=== PATIENT | male | born 1935 | race Caucasian/White ===

== ENCOUNTER 2017-01-22 15:57 | Inpatient (IN) | payer MEDICARE, MEDICAID ==
[2017-01-22 16:30] LABS: Oxyhemoglobin 97.9 % (94.0-97.0); Sodium 147 mmol/L (135-148)
[2017-01-22 16:34] LABS: Mechanical Tidal Volume 500 ml; Modified Allen's Test POSITIVE; Vent YES
[2017-01-22] MEDS ORDERED: Propofol 1,000 MG/100 ML VIAL IV ONE (16:34)
[2017-01-22 16:35] LABS: Mode TRANSPORT VENT
[2017-01-22] MEDS ORDERED: Sodium Bicarb 50 MEQ/50 ML Abboject 8.4% SYRINGE ONE (16:42)
[2017-01-22 16:46] LABS: Hematocrit 44.2 % (42.0-52.0); Mean Platelet Volume 7.3 fL (7.4-10.4); Red Blood Cell (RBC) Count 4.34 mill/uL (4.70-6.10); White Blood Cell (WBC) Count 24.7 thou/uL (4.8-10.8)
[2017-01-22 17:05] LABS: Band 3 % (5-11); Neutrophil 75 % (42-75)
--- NOTE | 2017-01-22 17:05 | RAD ---
TWO AP VIEWS OF THE CHEST 01/22/17 INDICATION: Intubation. COMPARISON: Prior exam dated 01/22/17 at 11:24 a.m. FINDINGS: ET tube tip is again seen around the region of the thoracic inlet. There is a gastric catheter placed and projects beyond the left hemidiaphragm beyond the field of view. Cardiomegaly with pulmonary vas culature congestion remains. There is a small to moderate right sided pneumothorax now demonstrated. Pacer pads overlie the right chest wall. IMPRESSION: 1. New small to moderate right sided pneumothorax. 2. ET tube tip is not appreciably changed from the comparison, projecting the region of the thor acic inlet. There is a gastric catheter projecting beyond the left hemidiaphragm below the field of v iew. Persistent cardiomegaly with pulmonary vascular congestion. 3. Findings were called to Dr. Case at 4:50 p.m. on 01/22/17. Code CR POS: [facility]
[2017-01-22 17:10] LABS: Troponin I 0.799 ng/mL (< 0.028)
[2017-01-22] MEDS ORDERED: Lidocaine 1% w/Epinephrine 1:200K 30 ML VIAL ONE (17:46)
[2017-01-22] MEDS ORDERED: Lacri-Lube Opth Oint 3.5 GM TUBE EA EYE PRN (18:55)
[2017-01-22] MEDS ORDERED: Acetaminophen 650 MG Suppository PR PRN (18:55)
[2017-01-22] MEDS ORDERED: CCU Electrolyte Replacement 1 EACH IVPB SCH (18:55)
[2017-01-22] MEDS ORDERED: Phenylephrine 10 MG/NS 250 ML 250 ML IVPB PRN (18:55)
[2017-01-22] MEDS ORDERED: Ondansetron HCl/PF 4 MG/2 ML Vial IVP PRN (18:55)
[2017-01-22] MEDS ORDERED: VANCOMYCIN IVPB PRN ×2 (19:10→19:25)
[2017-01-22] MEDS ORDERED: Magnesium Oxide 400 MG TAB PO PRN ×2 (19:11)
[2017-01-22] MEDS ORDERED: Magnesium 2 GM/NS 0.9% 100 ML 2 GM in Premix Bag 1 BAG IVPB PRN (19:11)
[2017-01-22] MEDS ORDERED: Potassium Chloride 20 MEQ TAB PO PRN (19:11)
[2017-01-22] MEDS ORDERED: Potassium Phosphate 15 MMOL in Sodium Chloride 0.9% 250 ML 250 ML IV PRN (19:11)
[2017-01-22] MEDS ORDERED: Potassium Chloride 40 MEQ in Premix Bag 1 BAG IVPB PRN (19:11)
[2017-01-22] MEDS ORDERED: Potassium Phosphate 9 MMOL in Sodium Chloride 0.9% 100 ML IVPB PRN (19:11)
[2017-01-22] MEDS ORDERED: Potassium Chloride 40 MEQ in Sodium Chloride 0.9% 250 ML 250 ML IVPB PRN (19:11)
[2017-01-22] MEDS ORDERED: CCU ELECTROLYTE REPLACEMENT PROTOCOL FS PRN (19:11)
[2017-01-22] MEDS ORDERED: Potassium Phosphate 12 MMOL in Sodium Chloride 0.9% 250 ML 250 ML IV PRN (19:11)
[2017-01-22] MEDS ORDERED: Vancomycin HCl 1.25 GM in Sodium Chloride 0.9% 250 ML 250 ML IVPB SCH (19:15)
[2017-01-22 19:39] LABS: Oxyhemoglobin 95.7 % (94.0-97.0); Sodium 146 mmol/L (135-148)
[2017-01-22 19:41] LABS: Mechanical Tidal Volume 500 ml; Vent YES
[2017-01-22 19:42] LABS: Mode AC
[2017-01-22] MEDS ORDERED: Piperacillin/Tazobactam 4.5 GM in Sodium Chloride 0.9% 100 ML IVPB SCH (20:00)
[2017-01-22 20:04] LABS: Bilirubin Small (Negative); Blood, Urine Large (Negative); Glucose, Urine (Dipstick) Negative (Negative); Ketone, Urine Trace mg/dL (Negative); Nitrite Positive (Negative); Protein, Urine (Dipstick) 100 mg/dL (Neg-Trace)
[2017-01-22 20:06] LABS: Bacteria/HPF 4+ HPF (None Seen)
[2017-01-22 20:14] LABS: Troponin I 2.732 ng/mL (< 0.028)
[2017-01-22 20:15] LABS: Hyaline Casts/LPF 4-6 HYALINE CAST LPF (0-3 Hyaline); Yeast-All Forms None Seen HPF (None Seen)
[2017-01-22] MEDS ORDERED: Sodium Bicarbonate 100 MEQ in Dextrose 5% in Water 1,000 ML IV SCH ×2 (20:15)
[2017-01-22 20:35] VITALS: BMI 20.6
--- NOTE | 2017-01-22 20:47 | HP ---
PRIMARY CARE PHYSICIAN: Vanessa Guerrero M.D. CHIEF COMPLAINT: Unresponsiveness. HISTORY OF PRESENT ILLNESS: Mr. Sonny Peck is an 81-year-old gentleman who was seen at [facility] on 01/22/2017 following transfer from the emergency room at [facility]. He is currently intubated, unable to provide any history or review of systems. History was obtained from review of medical records, discussion with the emergency room physician as well as discussion wi th patient's contact, Mr. Praneeth Mon. He was reportedly found unresponsive at the [facility]. He had 45 minutes of CPR and subsequently had return of spontaneous circulation. Intubation was attempted in the field, but unsuccessful. He had another episode of cardiopulmonary arrest in the emergency room and had return of spontaneous cir culation. He was intubated at the emergency room. Following intubation, he was bradycardic. He was treated with external pacer pads. He was also started on vasopressor drug to maintain blood pressur e. He reportedly had episodes of diarrhea. According to Praneeth Mon, Mr. Dennis does not have any next of kin. Praneeth is his caregiver. He has been taking care of him for several years. He put him in the [facility] a couple of years a go. He also reports that there is no body with medical power of condenser tube tender. Praneeth has been making dec isions for Mr. Sonny Gallagher. He does not know if he is FULL CODE or DNR. REVIEW OF SYSTEMS: Could not be completed because of inability to obtain information from the patien t. PAST MEDICAL HISTORY: Significant for Parkinson's disease; diabetes mellitus, type 2; hypertension; gastroesophageal reflux disease; alcohol abuse; and diastolic dysfunction. PAST SURGICAL HISTORY: Unable to obtain. FAMILY HISTORY: Brain cancer in his sister. SOCIAL HISTORY: Unable to obtain. ALLERGIES: No known drug allergies. CURRENT MEDICATIONS: Unable to obtain his list of current medications. PHYSICAL EXAMINATION: GENERAL: On examination, Mr. Sonny Peck is intubated, mechanically ventilated. VITAL SIGNS: Blood pressure is 112/74, pulse is 94, he is breathing at rate of 24 and saturating 96% on ventilator. CritiCore temperature is 95.7 degrees Fahrenheit. EYES: No scleral icterus. Pupils are nonreactive to light stimulus. ENT: Endotracheal tube in place. NECK: C-Spine collar in place. He appears to have a tracheal deviation to the left. RESPIRATORY: Accessory muscles of breathing are not active. Chest wall movements are symmetric bila terally. Lungs are clear to auscultation, without wheeze, rhonchi or crepitations. CARDIOVASCULAR: S1 and S2 are heard, regular. Peripheral pulses palpable. No pericardial rub. The patient has an intraosseous line to the right humerus as well as a right femoral line. NEUROLOGIC: Full neurologic examination not possible secondary to the patient's noncooperation. No facial droop. Deep tendon reflexes are sluggish. Plantar reflexes are equivocal bilaterally. ABDOMEN: Soft, nontender, bowel sounds heard. MUSCULOSKELETAL: No spontaneous extremity movements. SKIN: He has an area of erythema at the mid chest, likely from CPR. LYMPHATIC: No inguinal lymphadenopathy. PSYCHIATRIC: Unable to assess mood, affect, or orientation to person, place or time. IMAGING AND LABORATORY DATA: Mr. Sonny Peck labs and investigations were reviewed. I reviewed his electrocardiogram, which shows normal sinus rhythm, no ST changes to suggest an acute coronary syndro me. I also reviewed his blood work, which shows white count of 24,700, of which 75% are neutrophils, macrocytic anemia with hemoglobin of 13.6, normal platelet count, INR 1.2, normal sodium, normal pot assium, elevated creatinine of 4, elevated blood urea nitrogen of 43, troponin I that is indeterminat e at 0.085, elevated BNP of 334, elevated lactic acid level of 6.1, and arterial blood gases showing pH of 7.06, pCO2 of 36.7 and pO2 of 551. I also reviewed his chest x-ray, which shows a right-sided pneumothorax. ASSESSMENT AND PLAN: Mr. Sonny Peck is an 81-year-old gentleman who was seen at [facility] on 01/22/2017. His problem list includes: 1. Cardiac arrest: Etiology unclear, repeat troponin pending at this time. We will check CT scan o f the brain to rule out any intracranial causes. Sepsis is a possibility as well, we will check urin alysis and start patient on empiric antibiotics. Cardiology Service will be consulted given history of cardiac arrest. 2. Acute respiratory failure: The patient is intubated and mechanically ventilated: He will be adm itted to the CCU. Pulmonology Service has already been contacted by emergency room physician. 3. Acute kidney injury: Mr. Dennis will be treated with intravenous fluids. Likely cause of renal failure is cardiac arrest. We will recheck his creatinine. 4. Pneumothorax: CV Surgery has been consulted for chest tube placement. 5. Hypotension: We will continue vasopressors. 6. Deep venous thrombosis prophylaxis with sequential compression devices, gastrointestinal prophyla xis with Pepcid b.i.d. Patient's prognosis is poor, this has been conveyed to Praneeth. Many thanks for allowing me to participate in your patient's care. Please feel free to contact me wi th any questions or concerns. LEVEL OF RISK: High. LEVEL OF COMPLEXITY: High.
[2017-01-22] MEDS ORDERED: Famotidine/PF 20 mg/2ml Vial SLOW IVP SCH (21:00)
[2017-01-22] MEDS: Piperacillin/Tazobactam 2.25 GM in Sodium Chloride 0.9% 100 ML IVPB SCH (21:59)
[2017-01-22] MEDS: Norepinephrine 8 MG/0.9% NS 250 ML IVPB PRN (22:05)
[2017-01-22] MEDS: EPINEPHrine 1 MG, Admixture Fee 1 EACH in Dextrose 5% in Water 250 ML IVPB SCH ×3 (23:22)
[2017-01-22 23:29] LABS: Troponin I 5.716 ng/mL (< 0.028)
--- NOTE | 2017-01-22 23:39 | CT ---
CT BRAIN WITHOUT CONTRAST 01/22/17 HISTORY: Intubated. Return of spontaneous circulation. COMPARISON: CT brain 10/15/15. FINDINGS: No acute intracranial hemorrhage. No large volume infarction. Moderate atrophy. Ventricular size and extra-axial CSF spaces are concomitant with the amount of atrophy present. Moder ate mucosal thickening in the ethmoids. Small volume fluid in the sphenoid sinuses. IMPRESSION: No acute hemorrhage. POS: [facility]
--- NOTE | 2017-01-22 23:44 | CT ---
CT CERVICAL SPINE WITHOUT CONTRAST 01/22/17 HISTORY: Intubated. Return of spontaneous circulation. Injury. CPR. COMPARISON: None available. FINDINGS: Occipital condyles are intact. C1-2 articulation is normal. No acute fracture or malalignment of the cervical spine. Moderate to sev ere degenerative disc space disease at C5-6 and C6-7. Patient is intubated and enteric tube is in place. Trace right anterior pneumothorax or peripheral pu lmonary bleb is present. IMPRESSION: 1. No acute fracture or malalignment of the cervical spine. 2. Small right anterior pneumothorax and less likely pulmonary bleb. The hospitalist was paged a t 11:11 p.m. and discussed with Dr. Stephenson at 11:20 pm. POS: [facility]
--- NOTE | 2017-01-22 23:52 | OP ---
INDICATION: This is an 81-year-old gentleman who suffered an hib-yz-okpsveiw arrest in [facility] today, receiving CPR on 2 different occasions. He was transferred to [facility] where he is on ex ternal pacemaker and moderate high doses of Levophed. He was noted to have a new right-sided pneumot horax that was not present on x-ray earlier today, suggesting perhaps an injury during CPR. PROCEDURE IN DETAIL: The patient was prepped and draped in the anterior chest wall above the nipple, following which 1% lidocaine with epinephrine was used to infiltrate the area. An incision was made and #22 chest tube was inserted without difficulty. It was connected to the chest drainage system, secured to the skin and dressing applied.
--- NOTE | 2017-01-23 02:16 | CON ---
DATE OF CONSULTATION: 01/22/2017 HISTORY OF PRESENT ILLNESS: Patient is an unfortunate 81-year-old gentleman who suffered a cardiac arrest. The patient has a history of Parkinson disease. He lives in a long term. The patient has a long history of ill health. He was hospitalized approximately a year ago with progressive Parkinson's dementia. The patient was in the long term when apparently he lost consciousness and suffered an arrest. The patient was brought to the [facility] and transferred here for further evaluation. The patient is unable to give any coherent history. PAST MEDICAL HISTORY: See chart. MEDICATIONS: Levofloxacin 500 q.6 hours, Pepcid 20 daily, Sinemet 1 tablet t.i.d. ALLERGIES: No known drug allergies. PHYSICAL EXAMINATION GENERAL: Ill-appearing gentleman who is on inotropic support. HEENT: Pupils are nonreactive. NECK: Full. LUNGS: Coarse breath sounds bilateral. HEART: Regular rate and rhythm. ABDOMEN: Nondistended. LABORATORY AND DIAGNOSTIC DATA: Sodium 142, potassium 4.2, chloride 108, bicarbonate 14, BUN 43, creatinine 4.0. Troponin was 0.799. EKG revealed him to have normal sinus rhythm, first degree AV block, right bundle branch block, left anterior fascicular block. IMPRESSION: 1. Status post cardiac arrest. 2. Non-Q-wave myocardial infarction. 3. History of Parkinson's dementia. 4. Pneumothorax. 5. Renal failure. This gentleman suffered a cardiac arrest. It is unclear how long he was found unresponsive. From a cardiac standpoint, he apparently suffered severe anoxic injury. We will await further evaluation by Neurology. Continue supportive care with IV inotropes . With his overall poor prognosis,I would not place him on electronic pacemaker unless the patient has significant recovery. We will follow this patient with you through his hospitalization. This critical care note time was 30 minutes. TIP
--- NOTE | 2017-01-23 03:03 | CON ---
DATE OF SERVICE: 01/22/2017 SERVICE: Pulmonary Medicine. REASON FOR CONSULTATION: Intubated patient. HISTORY OF PRESENT ILLNESS: Patient is an 81-year-old white male with past medical history significa nt for alcohol abuse and dementia. He was in his usual state of health when apparently had increasin g difficulty with breathing. This rapidly deteriorated into a cardiac arrest, At 12:55, EMS arrived. Chest compressions were initiated. He was brought to the emergency department after 45 minutes. I n the Emergency Department, he had multiple episodes of coding once again. Each time, he had spontan eous return of circulation. Ultimately, he required chest tube placed on the right, and external pac ing, briefly. His hemodynamics finally stabilized with hefty dose of Levophed, and epinephrine. Alt jesu, the patient had greater than one hour of coding time. He cannot provide any additional elemen ts of the history because of his diffuse encephalopathy and likely severe anoxic brain injury. Every thing that I know comes from chart review. PAST MEDICAL HISTORY: 1. Parkinson's disease with dementia. 2. Alcohol abuse. 3. Chronic diastolic heart failure. 4. Type 2 diabetes mellitus. 5. Gastroesophageal reflux disease. 6. Hypertension. PAST SURGICAL HISTORY: Previously unknown. SOCIAL HISTORY: He previously lived at [facility]. He has a history of alcohol abuse. He does not currently using any alcohol, tobacco, or illicit drugs; however, so far a s I know. FAMILY HISTORY: Noncontributory/unknown. ALLERGIES: No known drug allergies. MEDICATIONS: List of the inpatient medications were reviewed. Multiple updates were made at this ti me. REVIEW OF SYSTEMS: This cannot be obtained as the patient is currently intubated and encephalopathic . PHYSICAL EXAMINATION: VITAL SIGNS: Currently afebrile, pulse 60, blood pressure 123/49, respirations 23, saturation 98% on 31% FIO2 and a PEEP of 5. HEENT: Normocephalic. He is cachectic appearing. LUNGS: Decreased air entry. There is a slightly prolonged expiratory phase. Crackles are present t hroughout bilateral lung barajas as or rhonchi. HEART: Bradycardic. Regular. ABDOMEN: Soft. Nontender, nondistended. Bowel sounds are actually active at this time. There is n o obvious rebound or guarding. MUSCULOSKELETAL: No cyanosis or clubbing. There is trace pitting in the bilateral lower extremities , but he does have severe wasting of muscle mass. GENITOURINARY: Valenzuela catheter in place. NEUROLOGIC: He is overbreathing the ventilator. That being said, his pupils are fixed at 3 mm and n ot reacted with light. Doll's eyes are abnormal. He does not demonstrate any cough or gag. He does not withdraw from noxious stimuli in the bilateral upper or lower extremities. Babinskis is neutral . LABORATORY DATA: WBC 24.7, hemoglobin 13.6, platelets 221,000. INR 1.2. PH 7.06, pCO2 is 36, pO2 i s 551 on 100% FIO2 with a PEEP of 5 at that time. Creatinine 4.0. Anion gap 24, BUN 43. Bicarbonat e 14. Liver function studies are otherwise unremarkable. Cardiac enzyme is 0.085, which is up trend ed to 0.8. BNP 334, lactate 6.1. IMAGING: Chest x-ray demonstrates a pneumothorax on the right, which is small to moderate in size. Endotracheal tube is in good position. There is enteric catheter coursing below the level of the kelli phragm. There is a significant rotation on the study. Cardiomegaly is evident on this portable film . There has been a subsequent chest tube that was placed, but no repeat image was obtained. ASSESSMENT: 1. Acute hypoxic respiratory failure. 2. Pneumothorax. 3. Pulseless electrical activity arrest, out of hospital. 4. Anoxic brain injury, severe. 5. Acute kidney injury. 6. 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 7. History of heavy alcohol abuse. PLAN: The patient will remain on mechanical ventilation. We will slowly wean away the Levophed as t olerated and then epinephrine. The chest tube is currently on suction. I will repeat a chest x-ray. I am also going to get an ABG in the morning. I have made multiple adjustments to his ventilator i n order to improve on his effort associated with the dyssynchrony. I will give him some empiric anti biotics, and start up a bicarbonate drip as he is having scant urine output. Critical care time: 40 minutes.
[2017-01-23] MEDS: EPINEPHrine 1 MG, Admixture Fee 1 EACH in Dextrose 5% in Water 250 ML IVPB SCH ×6 (04:21→08:42)
[2017-01-23 05:32] LABS: Anion Gap 28 mmol/L (10-20); BUN (Urea Nitrogen) 53 mg/dL (8.4-25.7); Calc. Creatinine Clearance 12 mL/min (70-130); Calcium 7.3 mg/dL (7.8-10.44); Chloride 107 mmol/L (98-107); Estimated GFR-MDRD 12
[2017-01-23 05:35] LABS: Carbon Dioxide 9 mmol/L (23-31)
[2017-01-23] MEDS ORDERED: Insulin Regular 300 UNITS/3 ML VIAL IVP SCH (06:00)
[2017-01-23] MEDS ORDERED: Sodium Bicarb 50 MEQ/50 ML Abboject 8.4% SYRINGE IVP SCH (06:00)
[2017-01-23] MEDS: Piperacillin/Tazobactam 2.25 GM in Sodium Chloride 0.9% 100 ML IVPB SCH ×2 (06:01→14:28)
[2017-01-23] MEDS: Norepinephrine 8 MG/0.9% NS 250 ML IVPB PRN ×2 (06:19→17:09)
[2017-01-23] MEDS: Sodium Bicarbonate 150 MEQ in Sterile Water Injection 1,000 ML IV SCH ×2 (06:22→13:00)
[2017-01-23 06:51] LABS: Band 44 % (5-11); Hematocrit 43.9 % (42.0-52.0); Mean Platelet Volume 8.1 fL (7.4-10.4); Metamyelocyte 3 % (0-0); Myelocyte 2 % (0-0); Neutrophil 33 % (42-75); Red Blood Cell (RBC) Count 4.38 mill/uL (4.70-6.10); White Blood Cell (WBC) Count 19.3 thou/uL (4.8-10.8)
[2017-01-23 07:13] LABS: Oxyhemoglobin 96.4 % (94.0-97.0); Sodium 141 mmol/L (135-148)
[2017-01-23 07:19] LABS: Modified Allen's Test POSITIVE; Vent YES
[2017-01-23 07:20] LABS: Mode A/C Pi=21
--- NOTE | 2017-01-23 08:59 | RAD ---
PORTABLE CHEST: Date: 01-23-17 Provided Clinical History: Respiratory insufficiency. FINDINGS: Comparison is made with the study dated 01-22-17. The cardiac and mediastinal silhouette has not defi nitely changed in appearance given differences in positioning. Endotracheal tube and enteric catheter are again noted. The enteric catheter has been advanced such that the proximal side hole lucency pro jects beneath the diaphragm. Interval placement of a right sided chest tube without significant resid ual pneumothorax definitely apparent. The lungs remain clear. There is no pleural fluid evident. IMPRESSION: Interval placement of right sided chest tube without significant residual pneumothorax apparent. POS: [facility]
--- NOTE | 2017-01-23 10:30 | PDOC.PN ---
- Subjective Encounter Start Date: 01/23/17 Encounter Start Time: 11:00 -: non-verbal Subjective: patient intubated, completely unresponsive on no sedation - Objective MAR Reviewed: Yes Vital Signs & Weight: Vital Signs (12 hours) Temp Pulse Resp BP Pulse Ox 01/23/17 08:00 30 H 01/23/17 07:00 98.3 F 01/23/17 06:56 61 127/43 L 100 01/23/17 06:00 30 H 01/23/17 04:00 97.9 F 28 H 01/23/17 02:00 27 H 01/23/17 00:00 97.7 F 26 H Weight Weight 152 lb 1.903 oz Most Recent Monitor Data Heart Rate from ECG 64 NIBP 112/44 NIBP BP-Mean 61 Respiration from ECG 30 SpO2 100 I&O: 01/22/17 01/23/17 01/24/17 06:59 06:59 06:59 Intake Total 1976 Output Total 260 10 Balance 1716 -10 Result Diagrams: 01/23/17 04:50 01/23/17 04:50 Additional Labs: Accuchecks 01/22/17 19:01 POC Glucose 210 H Phys Exam - Physical Examination unresponsive nonreactive pupils coarse breath sounds, decreased on right, chest tube in place Cardiovascular: RRR Gastrointestinal: soft Musculoskeletal: no edema no movement in any extremities Skin: no rash Dx/Plan (1) Cardiac arrest due to respiratory disorder Code(s): J98.9 - RESPIRATORY DISORDER, UNSPECIFIED; I46.8 - CARDIAC ARREST DUE TO OTHER UNDERLYING CONDITION Status: Acute (2) Acute respiratory failure Code(s): J96.00 - ACUTE RESPIRATORY FAILURE, UNSP W HYPOXIA OR HYPERCAPNIA Status: Acute Qualifiers: Respiratory failure complication: unspecified whether with hypoxia or hypercapnia Qualified Code(s): J96.00 - Acute respiratory failure, unspecified whether with hypoxia or hypercapnia Comment: intubated (3) Pneumothorax on right Code(s): J93.9 - PNEUMOTHORAX, UNSPECIFIED Status: Acute Comment: chest tube in place (4) Hypotension Status: Acute Comment: on vasopressors (5) Acute kidney injury Code(s): N17.9 - ACUTE KIDNEY FAILURE, UNSPECIFIED Status: Acute (6) Anoxic brain injury Status: Acute (7) History of alcohol abuse Code(s): Z87.898 - PERSONAL HISTORY OF OTHER SPECIFIED CONDITIONS Status: Chronic (8) Parkinsons disease Code(s): G20 - PARKINSON'S DISEASE Status: Chronic - Plan cont current plan of care, continue antibiotics, DVT proph w/SCDs On Vanc and Zosyn day #2 -: Very poor prognosis, awaiting friend who is only known contact, no -: known power of social science analyst or relatives * . - Discharge Day Encounter end time: 11:30
[2017-01-23] MEDS ORDERED: Potassium Chloride 40 MEQ in Premix Bag 1 BAG IVPB SCH (14:30)
--- NOTE | 2017-01-23 14:36 | PRG ---
DATE OF SERVICE: 01/23/2017 SERVICE: Pulmonary Medicine. INTERVAL HISTORY: The patient is doing great from a cardiovascular and respiratory standpoint. That being said, his mentation has not improved any. After his extensive PEA arrest, which was out of ho spital, he simply has not recovered any significant neurologic function. That being said, we are onl y 24 hours into his insult. He cannot provide me any additional elements of the history. There were no significant overnight events and we have been weaning off of our pressors. PHYSICAL EXAMINATION: VITAL SIGNS: Afebrile, pulse 73, blood pressure 105/48, respirations 33, saturation 100% on 31% FIO2 and a PEEP of 5. GENERAL: The patient is intubated. He is requiring no sedation, but completely nonresponsive. HEENT: Normocephalic, atraumatic. Sclerae are white, conjunctivae pink. Oral and nasal mucosa is m oist without lesions. LUNGS: Bilateral rhonchi and crackles are present. There is no prolonged expiratory phase or wheezi ng identified. HEART: Normal rate and regular. ABDOMEN: Soft, nontender, and nondistended. Bowel sounds are positive. MUSCULOSKELETAL: No cyanosis or clubbing. There is trace pitting in the bilateral lower extremities . GENITOURINARY: Valenzuela catheter in place. NEUROLOGIC: He does not withdraw from any noxious stimuli in all 4 extremities. Pupils are fixed an d nonresponsive to light. He has no cough or gag. He does over breathe the ventilator. LABORATORY DATA: WBC 19.3 and down trending, hemoglobin 13.7, platelets 213,000. Neutrophil count a nd band count are both trending upward. A pH 7.27, pCO2 22, pO2 114. Lactate has increased to 13.8. Bicarbonate is 9, potassium 3.0, creatinine 4.64 and up trending. BUN 53. Anion gap is now 28. T roponin has increased to 5.7. Urinalysis is significant for white blood cells, nitrites, and leukocy te esterase. Urine culture is presumptively growing E. coli. Blood cultures x2 are negative. IMAGING: Chest x-ray demonstrates excellent placement of the chest tube. Pneumothorax has resolved. Endotracheal tube remains in good position. There is an enteric catheter coursing below the level of the diaphragm. Multiple rib fractures are evident. There is no significant blunting of the costo phrenic angles. Cardiac silhouette is slightly enlarged on this portable film. Right-sided infiltra te may be present in the right midlung zone. ASSESSMENT: 1. Acute hypoxic respiratory failure. 2. Pneumothorax on the right, status post chest tube placement. 3. Pulseless electrical activity, out of hospital. 4. Anoxic brain injury, severe. 5. Acute kidney injury. 6. 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 7. History of heavy alcohol abuse. PLAN: We will continue supportive care over the next 24-48 hours. Palliative Care consultation will be placed to help us to identify who the next of kin is. I do think that additional extensive suppo rt moving forward will be futile. I do not think the patient has a survivable event. That being vanessa d, potassium will be replaced today. Insulin will be initiated. We will check beta hydroxybutyrate acid and repeat lactate this afternoon. Once he clears his lactate, tube feeds may be considered, bu t once we get a hold of the appropriate family members, we will need to talk to them about transition ing over to comfort care only and allowing the patient to natural . CRITICAL CARE TIME: 30 minutes.
[2017-01-23 14:54] VITALS: BP 94/43
[2017-01-23 16:22] VITALS: TEMP 100.4
[2017-01-23] MEDS ORDERED: EPINEPHrine 1 MG/10 ML Abboject SYRINGE ONE (20:31)
--- NOTE | 2017-01-24 01:09 | PRG ---
DATE OF SERVICE: 01/23/2017 The patient has deteriorated during his hospitalization. He was brought in for status post cardiopul monary arrest with severe anoxic brain injury. The patient has shown no evidence of moving toward a neurologic recovery and he has coded again this afternoon. Given the lack of reasonable chance that he will have any sort of good neurologic outcome and the lack of any family members or power of attor jasmyne. I have spoken with Dr. Oro, the press pipe inspector and we both agreed that at this point it is f utile to continue with aggressive intervention. At this time, we will move him to comfort care only.
[2017-01-24] MEDS ORDERED: Vancomycin HCl 750 MG in Sodium Chloride 0.9% 250 ML 250 ML IVPB SCH (20:00)
--- NOTE | 2017-01-24 22:34 | DS ---
DIAGNOSIS ON ADMISSION: Cardiopulmonary arrest from the jail, status post advanced cardiovas cular life support with return of spontaneous circulation. HOSPITAL COURSE: This is an 81-year-old white male with past medical history of alcohol abuse and de mentia, who reportedly had increased difficulty breathing and decreased responsiveness in the jail, this deteriorated into a cardiac arrest and EMS was called. Chest compressions were initiated . ACLS performed for 45 minutes with return of spontaneous circulation. The patient was put on pres sors and was seen in [place] emergency room, he was then transferred here. In the hospital, the pat mick was noted to have anoxic brain injury and never recovered any neurologic function. He remained unresponsive on the ventilator without requiring any sedation, had no reflexes. Patient deteriorated the second hospital day with loss of pulse and flat line, this resolved spontaneously, which is the pressors including an IV without any chest compressions done. At this time, Dr. Oro and Chon cross sed the case. The patient has no medical power of securities attorney and no known relatives given his severe a noxic brain injury and lack of any meaningful chance that neurologic recovery was determined to make him comfort care only. Later in the afternoon, the patient again had slowing of his heart and then a systole with time of at 1750 on 01/23/2017. CAUSE OF : Acute respiratory arrest, hypoxic respiratory failure leading to cardiopulmonary arr est and anoxic brain injury. CONTRIBUTING CONDITIONS: 1. Alcohol abuse. 2. Chronic diastolic congestive heart failure. 3. Parkinson's disease with dementia.
--- NOTE | 2017-02-13 14:57 | PQF ---
PATIENT'S SUMMARY DICTATED BY A DIFFERENT PHYSICIAN, PLS FORWARD THIS QUERY TO DR. POTTER. THANKS JEFF SMITH JR, DAVID [id number] CLINICAL DOCUMENTATION CLARIFICATION FORM: POST DISCHARGE Addendum to original discharge summary date: ____ Late entry note date: __ DATE: 02/13/17 ATTN: Fredis Grissom Please exercise your independent, professional judgment in responding to the clarification form. Clinical indicators are provided on the bottom of this form for your review [ ] Diagnosis of: pneumothorax [ ] Present on admission: [ ] Yes [ ] No [ ] Unable to determine [ ] Other diagnosis: Coding guidelines require hospitals to identify whether a diagnosis was present on admission (POA) or not. To accurately assign the appropriate POA indicator, this information must be clearly documented within the medical record. CLINICAL INDICATORS - SIGNS / SYMPTOMS / LABS: Documentation of pneumothorax by Aman Muñiz in the H&P, Dr. Burrell and Dr. Oro in the progress notes Documentation of Chest tube placement by Dr. Burrell Documentation of: pneumothorax confirmed by chest X-ray on 01/22/17 RISK FACTORS: CPR, intubation TREATMENT: Chest tube (This form is maintained as a part of the permanent medical record) 2015 [employer] All Rights Reserved IMSHEL Barbosa, [email or web address] [phone] MTDD
--- NOTE | 2017-02-20 16:14 | PQF ---
LUIS PRADO,ARTIE HILLIARD [id number] CLINICAL DOCUMENTATION CLARIFICATION FORM: POST DISCHARGE please request discharging physician for addendums to discharge summary Addendum to original discharge summary date: ____ Late entry note date: __ DATE: 02/13/17 ATTN: Artie Grissom Please exercise your independent, professional judgment in responding to the clarification form. Clinical indicators are provided on the bottom of this form for your review [ x] Diagnosis of: pneumothorax [ x] Present on admission: [ x] Yes [ ] No [ ] Unable to determine [ ] Other diagnosis: Coding guidelines require hospitals to identify whether a diagnosis was present on admission (POA) or not. To accurately assign the appropriate POA indicator, this information must be clearly documented within the medical record. CLINICAL INDICATORS - SIGNS / SYMPTOMS / LABS Documentation of: pneumothorax by Aman Muñiz in the H&P, Dr. Burrell and Dr. Oro in the progress notes Documentation of: Chest tube placement by Dr. Burrell Documentation of: pneumothorax confirmed by chest X-ray on 01/22/17 RISK FACTORS: CPR, intubation TREATMENT: Chest tube (This form is maintained as a part of the permanent medical record) 2015 [employer]. All Rights Reserved MISHEL Barbosa, [email or web address] [phone] MTDD
== END 2017-01-23 17:50 | disposition expired | DRG 208 ==
LOC: ERS 15:57 → CCU 16:40
PROVIDERS: ADMIT Internal Medicine; ATTEND Internal Medicine
PROC: 0BH17EZ Insertion of Endotracheal Airway into Trachea, Via Natural or Artificial Opening (ICD-10-PCS; principal; 2017-01-22)
PROC: 5A1945Z Respiratory Ventilation, 24-96 Consecutive Hours (ICD-10-PCS; 2017-01-22)
PROC: 0W9930Z Drainage of Right Pleural Cavity with Drainage Device, Percutaneous Approach (ICD-10-PCS; 2017-01-23)
DX: J96.01 Acute respiratory failure with hypoxia (principal); I46.9 Cardiac arrest, cause unspecified; I21.4 Non-ST elevation (NSTEMI) myocardial infarction; R40.20 Unspecified coma; G93.1 Anoxic brain damage, not elsewhere classified; G20 Parkinson's disease; S22.49XA Multiple fractures of ribs, unspecified side, initial encounter for closed fracture; N17.9 Acute kidney failure, unspecified; I50.32 Chronic diastolic (congestive) heart failure; K62.5 Hemorrhage of anus and rectum; J95.811 Postprocedural pneumothorax; F02.80 Dementia in other diseases classified elsewhere, unspecified severity, without behavioral disturbance, psychotic disturbance, mood disturbance, and anxiety; E11.9 Type 2 diabetes mellitus without complications; Z66 Do not resuscitate; Z51.5 Encounter for palliative care; F10.10 Alcohol abuse, uncomplicated; K21.9 Gastro-esophageal reflux disease without esophagitis; Y84.8 Other medical procedures as the cause of abnormal reaction of the patient, or of later complication, without mention of misadventure at the time of the procedure; I11.0 Hypertensive heart disease with heart failure; X58.XXXA Exposure to other specified factors, initial encounter
CPT/HCPCS: 36415; 36416; 70450; 71010; 72125; 80048; 81003; 81015; 82010; 82805; 83605; 85025; 86850; 86900; 86901; 87040; 87077; 87086; 87186; 92950; 93005; 94002; 94003; 96365; 96366; 96375; A4217; J0171; J1815; J2543; J2704; J3370; J3480; J7050; J7070; S0028